=== PATIENT | female | born 2000 | race Caucasian/White ===

== ENCOUNTER 2021-12-17 06:18 | Inpatient (IN) ==
[2021-12-17] MEDS ORDERED: PITOCIN ONE (06:30)
[2021-12-17] MEDS ORDERED: D5 1/2 NS 1,000 ML 1,000 ML IV ONE (06:30)
[2021-12-17] MEDS ORDERED: D5 1/2 NS 1,000 mL + PITOCIN 20 UNITS/L IV 20 UNITS/1,000 ML BAG IV ONE (06:31)
[2021-12-17] MEDS ORDERED: D5 LR + PITOCIN 10 UNITS/L 10 UNITS/1,000 ML BAG IV ONE ×2 (06:31→14:16)
[2021-12-17] MEDS ORDERED: BETADINE SOLN ONE (06:31)
[2021-12-17] MEDS ORDERED: REGLAN INJ 10 MG VIAL ONE ×2 (07:01→12:46)
[2021-12-17] MEDS ORDERED: D5 1/2 NS 1,000 ML 1,000 ML IV SCH (07:10)
[2021-12-17] MEDS ORDERED: PHENERGAN INJ 25 MG IM PRN ×2 (07:10→17:11)
[2021-12-17] MEDS ORDERED: NUBAIN INJ 200 MG VIAL MULTIDOSE IVP PRN (07:10)
[2021-12-17] MEDS ORDERED: D5 LR + PITOCIN 10 UNITS/L 10 UNITS/1,000 ML BAG IV PRN (07:10)
[2021-12-17] MEDS ORDERED: MORPHINE SULFATE INJ 2 MG INJ IVP PRN (07:10)
[2021-12-17] MEDS ORDERED: PITOCIN IVP ONE (07:10)
[2021-12-17] MEDS: REGLAN INJ 10 MG VIAL IVP PRN ×3 (07:11→21:14)
--- NOTE | 2021-12-17 07:15 | DR.OB ---
OB Quick Note - Assessment/Plan Assessment/Plan: L&D 12/17/21 at 6:55am S-No complaint. O-Afebrile,VSS DMR=013 with good LTV, +accel, no decel. CTX=none CVX=2cm/50%/-1/VTX AROM with clear fluid. IUPC and FSE placed. No vaginal or perineal lesions. A-IUP at 39 4/7 weeks for inductiion P-Begin pitocin induction Anticipate
[2021-12-17] MEDS ORDERED: STADOL INJ IVP PRN (07:17)
[2021-12-17] MEDS ORDERED: NAROPIN EPIDURAL 0.2% 100 ML ONE (09:43)
[2021-12-17] MEDS ORDERED: FENTANYL VIAL INJ 100 mcg ONE (09:43)
[2021-12-17] MEDS ORDERED: LR 1,000 ML IV 1,000 ML IV ONE (09:43)
[2021-12-17] MEDS ORDERED: STADOL INJ ONE (09:56)
[2021-12-17] MEDS ORDERED: ZOFRAN INJ 4 MG VIAL ONE (11:28)
[2021-12-17] MEDS ORDERED: BENADRYL INJ 50 MG VIAL ONE (12:20)
[2021-12-17] MEDS ORDERED: XYLOCAINE 1 % (PLAIN) ONE (16:48)
--- NOTE | 2021-12-17 17:11 | DR.OB ---
OB Quick Note - Assessment/Plan Assessment/Plan: Delivery Note CLINICAL FELLOW 12/17/21 at 16:46 Patient complete and pushing. Head delivered over intact perineum. Compound presentation with left hand at face. Nose and mouth bulb suctioned. No nuchal cord. Body delivered over intact perineum. Cord clamped x 2 and cut. handed to attendant. Cord sent for gases. Placenta delivered manually / intact / 3 vessel cord. No CVX / vaginal / perineal tears. Viable male infant, VTX/OA, wt=7'12" and 9/9, stable to NBN. Mother stable to RR. QJP=[id number].
[2021-12-17] MEDS: D5 1/2 NS 1,000 ML 1,000 ML with PITOCIN 20 UNITS IV SCH ×2 (17:54)
[2021-12-17] MEDS ORDERED: TYLENOL #3 TAB (W/CODEINE) PO PRN (18:00)
[2021-12-17] MEDS ORDERED: MILK OF MAGNESIA PO PRN (18:00)
[2021-12-17] MEDS ORDERED: ADACEL or BOOSTRIX TDaP VACCINE IM ONE (18:00)
[2021-12-17] MEDS ORDERED: AMBIEN PO PRN (18:00)
[2021-12-17] MEDS ORDERED: DERMOPLAST PAIN RELIEF SPRAY TOP PRN (18:00)
[2021-12-17] MEDS: MOTRIN TAB 800 MG PO PRN (19:32)
[2021-12-18] MEDS: D5 1/2 NS 1,000 ML 1,000 ML with PITOCIN 20 UNITS IV SCH ×4 (02:50→12:40)
[2021-12-18] MEDS: MOTRIN TAB 800 MG PO PRN ×2 (03:15→18:43)
[2021-12-18 05:30] LABS: HEMATOCRIT 28.8 % (36.0-47.0); HEMOGLOBIN 9.6 g/dL (12.0-16.0)
[2021-12-18] MEDS ORDERED: VALTREX PO SCH (09:00)
[2021-12-18] MEDS ORDERED: PRENATAL PLUS PO SCH (09:00)
[2021-12-18] MEDS ORDERED: PROTONIX TAB 40 MG PO SCH (09:00)
[2021-12-18 16:06] VITALS: BP 141/80
== END 2021-12-18 19:00 | disposition home or self-care (01) | DRG 806 ==
LOC: LD 06:18 → MED/SURG 18:06
PROVIDERS: ADMIT Specialist; ATTEND Specialist